=== PATIENT | male | born 1960 | race African-American/Black ===

== ENCOUNTER 2018-04-10 13:22 | Emergency (ER) | payer OTHER ==
[~2018-04-10] VITALS: Ht 167.6 cm; Wt 85.7 kg
--- NOTE | ~2018-04-10 | EKG ---
[place], [place] ELECTROCARDIOGRAM REPORT NAME: EDWIN CALDWELL UNIT #: [id number] ROOM: DOCTOR: EPIPHANY DRAFT REPORT BIRTHDATE: [birth year] [facility] Test Date: 2018-04-10 Test Time: 13:26:49 Pat Name: EDWIN CALDWELL Department: Room: Gender: Supervisor Assembling: YULY : 1960 Requested By: DANIELLE MIGUEL Order Number: [id number] Reading MD: Musa Arrington MD Measurements Intervals [place] Rate: 97 P: 53 [place]: 116 QRS: 46 QRSD: 77 T: 11 QT: 343 QTc: 436 Interpretive Statements Sinus rhythm Borderline short [place] interval Probable left atrial enlargement Abnormal R-wave progression, early transition Minimal ST elevation, anterior leads No previous ECG available for comparison Electronically Signed On 04-10-2018 19:48:17 PDT by Musa Arrington MD CM:EKGRPT:ELECTROCARDIOGRAM REPORT [id number] DANIELLE MIGUEL MD EPIPHANY DRAFT REPORT DANIELLE MIGUEL MD
[2018-04-10] MEDS ORDERED: PROZAC10 MG PO (13:28)
[2018-04-10] MEDS ORDERED: ZANTAC 7575 M1 PO (13:28)
[2018-04-10] MEDS ORDERED: TRAZODONE50 MG PO (13:28)
[2018-04-10] MEDS ORDERED: HIGH BLOOD PRESSURE (13:29)
[2018-04-10 13:50] LABS: BASO % 0.3 % (0.0-1.0); EOS # 0.1 10*3/uL (0.0-0.4); EOS % 0.8 % (1.0-4.0); HEMOGLOBIN 11.7 g/dl (14.0-18.0); LYMPH # 2.7 10*3/uL (1.3-4.4); LYMPH % 23.7 % (27.0-41.0); MEAN CELL VOLUME 66.5 fl (80.0-94.0); MEAN CORPUSCULAR HGB 20.5 pg (27.0-31.0); MEAN CORPUSCULAR HGB CONC 30.8 g/dl (33.0-37.0); MEAN PLATELET VOLUME 10.2 fl (9.6-12.3); MONO # 0.8 10*3/uL (0.1-1.0); MONO % 6.6 % (3.0-9.0); NEUT # 7.8 10*3/uL (2.3-7.9); PLATELET COUNT AUTOMATED 261 10*3/uL (130-400); RED BLOOD COUNT 5.71 10*6/uL (4.50-5.90); RED CELL DISTRI WIDTH 15.9 % (0-14.5); WHITE BLOOD COUNT 11.4 10*3/uL (4.8-10.8)
[2018-04-10 14:04] LABS: ACT PARTIAL THROMBO TIME 24.9 SECONDS (20.8-31.5); INTERNATIONAL NORM RATIO 0.9 (2.0-3.5)
[2018-04-10 14:05] LABS: ALBUMIN 3.4 gm/dl (3.1-4.5); ALKALINE PHOSPHATASE 108 U/L (45-117); BUN 18 mg/dl (7-24); CHLORIDE 107 mmol/L (98-107); CREATININE 0.99 mg/dL (0.70-1.30); POTASSIUM 3.7 mmol/L (3.5-5.1); SGOT/AST 16 IU/L (3-35); SGPT/ALT 39 U/L (12-78); SODIUM 143 mmol/L (136-145); TOTAL PROTEIN 6.8 gm/dL (6.4-8.2)
[2018-04-10 14:10] LABS: TROPONIN I < 0.015 ng/ml (<0.045)
== END 2018-04-10 16:33 | disposition left against medical advice (07) ==
LOC: ED 13:22
PROVIDERS: Emergency Medicine
DX: R07.9 Chest pain, unspecified (principal); I10 Essential (primary) hypertension; F17.200 Nicotine dependence, unspecified, uncomplicated; Z79.899 Other long term (current) drug therapy